=== PATIENT | female | born 1960 | race Caucasian/White ===

== ENCOUNTER 2016-10-04 13:48 | Emergency (ER) | payer MEDICARE, OTHER ==
[~2016-10-04 13:48] MED LIST: AGGR20025; ATOR10 PO; LISI2.5T3 PO; OXYC10TA8 OR; TIZA2TAB PO
[2016-10-04 13:56] VITALS: BP 162/90; PULSE 101; RESP 20; TEMP 98
[2016-10-04] MEDS ORDERED: MORP1TAB25 PO (14:10)
[2016-10-04] MEDS ORDERED: HYDR-3535 PO (14:10)
[2016-10-04] MEDS ORDERED: LOSA25TA PO (14:10)
[2016-10-04] MEDS ORDERED: PLAV75TA29 PO (14:10)
[2016-10-04] MEDS ORDERED: XANA1TAB2 PO (14:10)
[2016-10-04] MEDS ORDERED: BACI500O9 TOPICAL (14:34)
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
[2016-10-04] MEDS ORDERED: TETANUS/DIPHTHERIA TOXOID ADULT 0.5 ML VIAL IM ONE (14:45)
== END 2016-10-04 14:57 | disposition home or self-care (01) ==
LOC: PHED 13:48
DX: T25.222A Burn of second degree of left foot, initial encounter (principal); E78.00 Pure hypercholesterolemia, unspecified; I10 Essential (primary) hypertension; F17.200 Nicotine dependence, unspecified, uncomplicated; X08.8XXA Exposure to other specified smoke, fire and flames, initial encounter; Z86.73 Personal history of transient ischemic attack (TIA), and cerebral infarction without residual deficits; Z79.02 Long term (current) use of antithrombotics/antiplatelets; Z79.899 Other long term (current) drug therapy; Z23 Encounter for immunization
CPT/HCPCS: 16020; 90471; 90714